=== PATIENT | female | born 1950 | race African-American/Black ===

== ENCOUNTER → 2020-11-27 | Day surgery (SDC) | payer OTHER, MEDICARE ==
[~2020-11-27] MED LIST: ALLERGY MEDICAT25 MG PO; ARNUITY ELLIPT50 MCG INH; ASPIRIN CHEWABL81 MG PO; CYMBALTA60 MG PO; DAILY VALUE1 EACH PO; DIVALPROEX SOD250 MG PO; FEOSOL325 MG PO; HCTZ25 MG PO; K-DUR20 MEQ PO; MAG-OXIDE 400M400 MG PO; NAPROXEN500 MG PO; OS-CAL500 MG PO; PERCOCET 5-3251 EACH PO; PRAVACHOL20 MG PO; PRILOSEC20 MG PO; TOPROL XL 25MG25 MG PO; VASOTEC10 MG PO; VITAMIN D3250 MC2 PO; [UNRECOGNIZED DRUG - OTHER] XX
[2020-11-27 11:27] LABS: CREATININE 1.13 mg/dL (0.51-0.95); POTASSIUM 4.2 mmol/L (3.5-5.1)
== END | disposition home or self-care (01) ==
LOC: FAS 08:48
PROVIDERS: Anesthesiology
DX: C50.912 Malignant neoplasm of unspecified site of left female breast (principal); K21.9 Gastro-esophageal reflux disease without esophagitis; M19.90 Unspecified osteoarthritis, unspecified site; F32.9 Major depressive disorder, single episode, unspecified; F41.9 Anxiety disorder, unspecified; G47.30 Sleep apnea, unspecified; I13.0 Hypertensive heart and chronic kidney disease with heart failure and stage 1 through stage 4 chronic kidney disease, or unspecified chronic kidney disease; E11.22 Type 2 diabetes mellitus with diabetic chronic kidney disease; N18.9 Chronic kidney disease, unspecified; I50.32 Chronic diastolic (congestive) heart failure; M10.9 Gout, unspecified; E78.00 Pure hypercholesterolemia, unspecified; E66.01 Morbid (severe) obesity due to excess calories; Z68.42 Body mass index [BMI] 45.0-49.9, adult; Z87.891 Personal history of nicotine dependence; Z17.0 Estrogen receptor positive status [ER+]; Z79.82 Long term (current) use of aspirin; Z79.84 Long term (current) use of oral hypoglycemic drugs; Z79.899 Other long term (current) drug therapy; Z98.84 Bariatric surgery status
CPT/HCPCS: 36415; 76098; 77065; 80048; J2250; J2405; J2704; J3010; J7120

== ENCOUNTER → 2020-12-18 | Day surgery (SDC) | payer MEDICARE, OTHER | END | disposition home or self-care (01) | LOC: FAS 08:57 | DX: D05.12 Intraductal carcinoma in situ of left breast (principal); N62 Hypertrophy of breast; N64.89 Other specified disorders of breast; I10 Essential (primary) hypertension; E78.5 Hyperlipidemia, unspecified; E11.9 Type 2 diabetes mellitus without complications; E66.01 Morbid (severe) obesity due to excess calories; G47.30 Sleep apnea, unspecified; F32.9 Major depressive disorder, single episode, unspecified; K21.9 Gastro-esophageal reflux disease without esophagitis; F41.9 Anxiety disorder, unspecified; Z87.891 Personal history of nicotine dependence; Z68.42 Body mass index [BMI] 45.0-49.9, adult; Z79.82 Long term (current) use of aspirin; Z79.84 Long term (current) use of oral hypoglycemic drugs; Z79.899 Other long term (current) drug therapy | CPT/HCPCS: 78195; 82962; 93005; A9541; J1170; J1885; J2250; J2405; J2704; J3010; J7120 ==